=== PATIENT | male | born 2005 ===

== ENCOUNTER 2024-09-09 06:35 | Outpatient (REF) | payer OTHER, SELFPAY | END 2024-09-09 06:36 | disposition home or self-care (01) | LOC: HO.UMASIMG 06:35 | PROVIDERS: Visit Provider Physician Assistant | DX: Z13.89 Encounter for screening for other disorder (principal) ==

== ENCOUNTER 2024-10-05 06:38 | Outpatient (REF) | payer OTHER, SELFPAY ==
--- NOTE | ~2024-10-05 | US_ITS ---
CLINICAL HISTORY: SOFT TISSUE NECK MASS, RIGHT SIDE US SOFT TISSUE HEAD AND NECK Comparison: None Findings: Targeted assessment of the palpable area of concern was performed. Multiple images are labeled ???right neck.??? A right level 2B cervical lymph node was identified measuring 1.2 x 0.3 x 0.9 cm. There is normal morphology with preserved fatty hilum. No measurable mass or fluid collection. Impression: 1. Nonenlarged benign lymph node corresponds as palpated. This document has been electronically signed by: Nasreen Wilson DO on 10/05/2024 17:02:20
== END 2024-10-05 06:39 | disposition home or self-care (01) ==
LOC: HO.UMASIMG 06:38
PROVIDERS: Visit Provider Physician Assistant
DX: R07.89 Other chest pain (principal); R22.1 Localized swelling, mass and lump, neck
CPT/HCPCS: 76536

== ENCOUNTER → 2024-10-05 11:30 | Outpatient (BNV) | payer OTHER, SELFPAY | PROVIDERS: Visit Provider Radiology Diagnostic Radiology | DX: R22.1 Localized swelling, mass and lump, neck (principal) | CPT/HCPCS: 76536 ==